=== PATIENT | male | born 1975 | race African-American/Black ===

== ENCOUNTER 2017-09-29 16:26 | Emergency (ER) | payer BC ==
[~2017-09-29] VITALS: Ht 182.9 cm; Wt 93.9 kg
--- NOTE | ~2017-09-29 | EKG ---
[address] [place] [address] ELECTROCARDIOGRAM REPORT Name: PA JC Room #: [facility]#: [id number] Admission: 09/29/17 Attend Phys: Discharge: 09/29/17 Date of : 79 Report #: [id number] THIS REPORT FOR: //name// [facility] ED Test Date: 2017-09-29 Test Time: 16:34:06 Pat Name: PA JC Department: Room: Gender: [employer] Account Manager: JOSE : 1975 Requested By: Noa Farley Order Number: [id number] MD: Homar Christian Measurements Intervals [place] Rate: 114 P: 23 KS: 159 QRS: -19 QRSD: 87 T: 117 QT: 353 QTc: 487 Interpretive Statements Sinus tachycardia LVH with secondary repolarization abnormality Compared to ECG 10/09/2016 17:06:23 Lateral T wave abnormality is less pronounced Electronically Signed On 09-30-2017 8:22:34 TECHNICAL ASSOCIATE by Homar Christian [email or web address] <ELECTRONICALLY SIGNED> By: Homar Christian MD, [facility] 09/30/17 0822 [id number] 33 Homar Christian MD, FACC /EPI
[~2017-09-29 16:26] MED LIST: BENICAR40 MG PO; CATAPRES0.2 MG PO; TENORMIN50 MG PO
[2017-09-29] MEDS ORDERED: LISINOPRIL5 MG PO (16:35)
[2017-09-29] MEDS ORDERED: HYDRALAZINE 5050 MG PO (16:36)
[2017-09-29] MEDS ORDERED: NITROGLYCERIN0.4 MG SUBLING (16:37)
[2017-09-29 16:54] LABS: ABSOLUTE NEUTROPHILS 7.1 thou/uL (1.4-8.2); BASOPHILS 0.3 % (0.0-2.0); EOSINOPHILS 1.6 % (0.0-3.0); HEMATOCRIT 47.8 % (42.0-52.0); HEMOGLOBIN 16.9 gm/dL (14.0-18.0); LYMPHOCYTES 23.4 % (24.0-44.0); MCH 35.8 pg (26.0-34.0); MCHC 35.3 g/dL (28.0-37.0); MCV 101.4 fL (80.0-100.0); MONOCYTES 9.3 % (1.0-8.0); PLATELET COUNT 240 thou/uL (150-400); POLYS 65.4 % (36.0-66.0); RBC 4.72 mil/uL (4.50-6.00); RDW 14.2 % (10.5-14.5); WBC 10.9 thou/uL (4.0-11.0)
[2017-09-29 16:57] LABS: CALCIUM 9.2 mg/dL (8.5-10.1); CREATININE 1.3 mg/dL (0.7-1.3); POTASSIUM 3.8 mmol/L (3.5-5.1)
[2017-09-29] MEDS ORDERED: PRINIVIL10 MG PO (19:20)
== END 2017-09-29 19:34 | disposition home or self-care (01) ==
LOC: ER 16:26
PROVIDERS: Emergency Medicine
DX: R00.2 Palpitations (principal); I10 Essential (primary) hypertension